=== PATIENT | male | born 1990 ===

== ENCOUNTER 2019-09-11 | Outpatient (CLI) | payer OTHER, SELFPAY | END 2019-09-11 23:00 | disposition home or self-care (01) | LOC: GILAB 04-26 13:48 | PROVIDERS: Visit Provider Internal Medicine Gastroenterology | DX: Z53.9 Procedure and treatment not carried out, unspecified reason (principal) | CPT/HCPCS: J1644; J2250; J3010 ==

== ENCOUNTER 2019-10-16 08:31 | Outpatient (CLI) | payer BC, OTHER, SELFPAY ==
[2019-10-16 08:56] VITALS: BP 146/85; PULSE 99; RESP 18; TEMP 36.5; O2SAT 99; BMI 27.1
[2019-10-16 09:41] LABS: Basophils # 0.1 10^3/uL (0.0-0.1); Eosinophils # 0.2 10^3/uL (0.0-0.8); Eosinophils % 3.1 %; Hematocrit 40.6 % (42.0-52.0); Hemoglobin 14.3 g/dL (11.7-16.6); Lymphocytes # 1.2 10^3/uL (0.8-4.8); Lymphocytes % 24.5 %; Mean Corpuscular HGB Conc 35.2 g/dL (30.0-36.0); Mean Corpuscular Volume 102.3 fL (80-94); Mean Platelet Volume 11.8 fL (7.4-10.4); Monocytes # 0.5 10^3/uL (0.2-0.9); Monocytes % 10.4 %; Neutrophils % 60.8 %; Nucleated Red Blood Cells % 0 %; Platelet Count 225 10^3/cmm (130-400); Red Blood Count 3.97 10^6/uL (4.1-5.3); Red Cell Distribution Width 14.4 % (12.1-15.1); White Blood Count 4.9 10^3/uL (4.0-10.0)
[2019-10-16 10:09] LABS: Alanine Aminotransferase 54 U/L (0-41); Albumin Level 4.6 g/dL (3.5-5.2); Alkaline Phosphatase 94 IU/L (40-130); Aspartate Amino Transferase 45 U/L (0-40); Globulin 3.3 g/dL (1.3-4.6); Total Bilirubin 0.5 mg/dL (0.15-1.2); Total Protein 7.9 g/dL (6.6-8.7)
== END 2019-10-16 08:32 | disposition home or self-care (01) ==
LOC: GILAB 08:38
PROVIDERS: Visit Provider Internal Medicine Gastroenterology
DX: K50.80 Crohn's disease of both small and large intestine without complications (principal)
CPT/HCPCS: 36415; 80076; 85025; 96365; 96366; J1745; J7050

== ENCOUNTER 2020-01-14 09:59 | Outpatient (CLI) | payer BC, SELFPAY ==
[2020-01-14 10:10] VITALS: BP 136/90; PULSE 88; RESP 16; TEMP 36.6; O2SAT 99; BMI 27.1
== END 2020-01-14 10:00 | disposition home or self-care (01) ==
LOC: GILAB 10:05
PROVIDERS: Visit Provider Internal Medicine Gastroenterology
DX: K50.819 Crohn's disease of both small and large intestine with unspecified complications (principal)
CPT/HCPCS: 96365; 96366; J7050; Q5104

== ENCOUNTER → 2020-03-18 10:01 | Day surgery (SDC) | payer OTHER, SELFPAY ==
[2020-03-18 11:01] VITALS: BMI 24.4
[2020-03-18 11:06] VITALS: BP 147/87; PULSE 97; RESP 18; TEMP 37.1; O2SAT 98
[2020-03-18] MEDS: iron sucrose 200 MG in sodium chloride 0.9% (100 ml) 100 ML 220 MG IV (11:18)
== END ==
PROVIDERS: Visit Provider Internal Medicine Gastroenterology
DX: K50.80 Crohn's disease of both small and large intestine without complications (principal)
CPT/HCPCS: 96365; J1756

== ENCOUNTER → 2020-05-18 11:39 | Day surgery (SDC) | payer OTHER, SELFPAY ==
[2020-05-18] MEDS: acetaminophen 500 mg Tablet PO (12:09)
[2020-05-18] MEDS: diphenhydrAMINE 25 mg Capsule PO (12:09)
[2020-05-18 12:13] VITALS: BP 139/87; PULSE 87; RESP 18; TEMP 36.6; O2SAT 99
[2020-05-18 12:53] VITALS: BMI 24.4
== END ==
PROVIDERS: Visit Provider Internal Medicine Gastroenterology
DX: K50.80 Crohn's disease of both small and large intestine without complications (principal)
CPT/HCPCS: 96365; J7050; Q5104

== ENCOUNTER → 2020-06-13 10:46 | Outpatient (BNVA) | payer OTHER, SELFPAY | PROVIDERS: Visit Provider Family Medicine | DX: Z11.59 Encounter for screening for other viral diseases (principal); J06.9 Acute upper respiratory infection, unspecified | CPT/HCPCS: 87635 ==

== ENCOUNTER 2020-08-26 15:09 | Outpatient (CLI) | payer SELFPAY ==
[2020-08-26 16:04] LABS: Basophils % 0.8 %; Eosinophils # 0.1 10^3/uL (0.0-0.8); Eosinophils % 1.7 %; Hematocrit 34.9 % (42.0-52.0); Hemoglobin 11.5 g/dL (11.7-16.6); Mean Corpuscular Volume 115.2 fL (80-94); Mean Platelet Volume 9.8 fL (7.4-10.4); Monocytes # 0.2 10^3/uL (0.2-0.9); Monocytes % 4.6 %; Neutrophils # 3.84 10^3/uL (1.8-7.7); Neutrophils % 73.5 %; Nucleated Red Blood Cells % 0 %; Platelet Count 325 10^3/cmm (130-400); Red Blood Count 3.03 10^6/uL (4.1-5.3); Red Cell Distribution Width 13.7 % (12.1-15.1); White Blood Count 5.2 10^3/uL (4.0-10.0)
[2020-08-26 16:23] LABS: Alanine Aminotransferase 31 U/L (0-41); Alkaline Phosphatase 112 IU/L (40-130); Aspartate Amino Transferase 24 U/L (0-40); Iron 137 ug/dL (59-158); Percent Saturation 48.7 % (20-50); Total Bilirubin 0.4 mg/dL (0.15-1.2); Total Iron Binding Capacity 281 mcg/dl; Unsaturated Iron Binding 144 ug/dL (112-347)
[2020-08-26 16:33] LABS: Vitamin B12 277 pg/mL (232-1245)
== END 2020-08-26 15:10 | disposition home or self-care (01) ==
PROVIDERS: Visit Provider Internal Medicine Gastroenterology
DX: E53.8 Deficiency of other specified B group vitamins (principal); K50.80 Crohn's disease of both small and large intestine without complications; D50.8 Other iron deficiency anemias; Z79.899 Other long term (current) drug therapy
CPT/HCPCS: 36415; 80076; 82607; 83540; 83550; 85025